=== PATIENT | female | born 1935 | race Two or more races ===

== ENCOUNTER → 2019-01-26 | Outpatient (CLI) | payer MEDICARE, OTHER ==
[~2019-01-26] VITALS: Ht 157.5 cm; Wt 51.7 kg
[~2019-01-26] MED LIST: ASPI81 PO; ATOR40TA28 PO; CELE200 PO; CEPH500 PO; FERR-89 PO; FURO40 PO; ISOS30TA6 PO; LINA145C PO; MEMA10TA11 PO; METO25 PO; PANT40TA25 PO; PARO10TA89 PO; PYRI50 PO; RISP1 PO; SACU1TAB PO; SITA100 PO; TICA90TA PO
[2019-01-26 11:10] VITALS: BP 126/76
== END | disposition home or self-care (01) ==
LOC: HBOWC 10:59
PROVIDERS: ATTEND Surgery Plastic and Reconstructive Surgery
DX: E11.622 Type 2 diabetes mellitus with other skin ulcer (principal); L97.312 Non-pressure chronic ulcer of right ankle with fat layer exposed
CPT/HCPCS: 11042; G0463

== ENCOUNTER → 2019-02-02 | Outpatient (CLI) | payer MEDICARE, OTHER ==
[2019-02-02 09:19] VITALS: BP 117/81
== END | disposition home or self-care (01) ==
LOC: HBOWC 08:47
PROVIDERS: ATTEND Surgery Plastic and Reconstructive Surgery
DX: E11.622 Type 2 diabetes mellitus with other skin ulcer (principal); L97.315 Non-pressure chronic ulcer of right ankle with muscle involvement without evidence of necrosis; Z79.82 Long term (current) use of aspirin
CPT/HCPCS: 11043

== ENCOUNTER → 2019-02-09 | Outpatient (CLI) | payer MEDICARE, OTHER ==
[2019-02-09 09:00] VITALS: BP 146/87
== END | disposition home or self-care (01) ==
LOC: HBOWC 08:29
PROVIDERS: ATTEND Surgery Plastic and Reconstructive Surgery
DX: E11.622 Type 2 diabetes mellitus with other skin ulcer (principal); L97.315 Non-pressure chronic ulcer of right ankle with muscle involvement without evidence of necrosis; Z79.82 Long term (current) use of aspirin
CPT/HCPCS: 11043

== ENCOUNTER → 2019-02-16 | Outpatient (CLI) | payer MEDICARE, OTHER ==
[2019-02-16 09:43] VITALS: BP 101/58
== END | disposition home or self-care (01) ==
LOC: HBOWC 09:32
PROVIDERS: ATTEND Surgery Plastic and Reconstructive Surgery
DX: E11.622 Type 2 diabetes mellitus with other skin ulcer (principal); L97.311 Non-pressure chronic ulcer of right ankle limited to breakdown of skin; Z79.82 Long term (current) use of aspirin

== ENCOUNTER → 2019-03-02 | Outpatient (CLI) | payer MEDICARE, OTHER ==
[2019-03-02 08:56] VITALS: BP 103/60
== END | disposition home or self-care (01) ==
LOC: HBOWC 08:54
PROVIDERS: ATTEND Surgery Plastic and Reconstructive Surgery
DX: E11.622 Type 2 diabetes mellitus with other skin ulcer (principal); L97.311 Non-pressure chronic ulcer of right ankle limited to breakdown of skin; Z79.82 Long term (current) use of aspirin
CPT/HCPCS: 73610; G0463

== ENCOUNTER → 2019-05-04 | Outpatient (CLI) | payer MEDICARE, OTHER | END | disposition home or self-care (01) | LOC: HBOWC 09:30 | PROVIDERS: ATTEND Surgery Plastic and Reconstructive Surgery | DX: E11.622 Type 2 diabetes mellitus with other skin ulcer (principal); L97.318 Non-pressure chronic ulcer of right ankle with other specified severity; H91.90 Unspecified hearing loss, unspecified ear; R26.9 Unspecified abnormalities of gait and mobility; E78.5 Hyperlipidemia, unspecified; Z79.82 Long term (current) use of aspirin ==